=== PATIENT | female | born 1980 | race Hispanic/Latino ===

== ENCOUNTER 2024-04-06 09:08 | Day surgery (SDC) | payer BC ==
[2024-04-04 14:27] VITALS: BMI 36.6
[2024-04-04 14:32] LABS: BHCG - Serum Negative (NEGATIVE); Pregs Control Background? CLEAR/WHITE (CLR/WHITE); Pregs Control Bar Appear? YES (CONTROL BAR)
[2024-04-04 14:33] LABS: Hematocrit 36.6 % (34.9-44.5); Hemoglobin 10.9 g/dL (12.0-15.5); Mean Corpuscular HGB CONC 29.8 g/dL (32.0-36.0); Mean Corpuscular Hemoglobin 21.6 pg (27.0-33.0); Mean Corpuscular Volume 72.6 fL (81.6-98.3); Mean Platelet Volume 11.8 fL (7.4-10.4); Platelet Count 279 10x3/uL (150-450); RBC Distribution Width 22.2 % (11.5-14.5); Red Blood Cell (RBC) Count 5.04 10x6/uL (3.90-5.03); White Blood Cell (WBC) Count 7.5 10x3/uL (3.5-10.5)
[2024-04-06] MEDS ORDERED: Gabapentin 300 MG CAP ONE (10:02)
[2024-04-06] MEDS ORDERED: Famotidine/PF 20 mg/2ml Vial ONE (10:02)
[2024-04-06] MEDS ORDERED: CeleCOXIB 100 MG CAP ONE (10:02)
[2024-04-06] MEDS ORDERED: EPINEPHrine 1 MG/ML VIAL ONE (10:21)
[2024-04-06] MEDS ORDERED: Bupivacaine PF 0.5% 30 ML VIAL ONE (10:21)
[2024-04-06] MEDS ORDERED: SUGAMMADEX SODIUM 200 MG/2 ML VIAL ONE (10:46)
[2024-04-06] MEDS ORDERED: Dexmedetomidine 200 MCG/2 ML VIAL ONE (10:46)
[2024-04-06] MEDS ORDERED: Ondansetron PF 4 MG/2 ML Vial ONE (10:48)
[2024-04-06] MEDS ORDERED: Midazolam HCl 2 mg/2 ml Vial ONE (10:48)
[2024-04-06] MEDS ORDERED: Rocuronium Bromide 10 MG/ML (10ML VIAL) ONE (10:48)
[2024-04-06] MEDS ORDERED: Fentanyl 250 MCG/5 ML VIAL ONE (10:48)
[2024-04-06] MEDS ORDERED: PROPOFOL 20 ML ONE (10:48)
[2024-04-06] MEDS ORDERED: Dexamethasone 20 MG/5 ML VIAL ONE (10:48)
[2024-04-06] MEDS ORDERED: Lidocaine 1% PF 5 ML VIAL ONE (10:48)
[2024-04-06] MEDS ORDERED: CEFAZOLIN 2 GM VIAL ONE (11:13)
[2024-04-06] MEDS ORDERED: Ketorolac Tromethamine 30 MG (1 mL) VIAL ONE (11:55)
[2024-04-06] MEDS ORDERED: ePHEDrine Sulfate 50 MG/10 ML VIAL ONE (12:05)
[2024-04-06] MEDS ORDERED: fentaNYL 50 mcg/mL 1 mL Vial ONE ×2 (14:36→14:44)
[2024-04-06] MEDS ORDERED: HYDROcodone/Acetaminophen 5/325 mg Tablet ONE (15:36)
== END 2024-04-06 16:45 | disposition home or self-care (01) ==
LOC: CSHSDC 09:08
PROVIDERS: ATTEND Student in an Organized Health Care Education/Training Program
PROC: 0UT94ZZ Resection of Uterus, Percutaneous Endoscopic Approach (ICD-10-PCS; principal; 2024-04-06)
PROC: 0UB74ZZ Excision of Bilateral Fallopian Tubes, Percutaneous Endoscopic Approach (ICD-10-PCS; principal; 2024-04-06)
DX: D25.9 Leiomyoma of uterus, unspecified (principal); N72 Inflammatory disease of cervix uteri; N87.0 Mild cervical dysplasia; N88.8 Other specified noninflammatory disorders of cervix uteri; N93.9 Abnormal uterine and vaginal bleeding, unspecified; D64.9 Anemia, unspecified; E66.9 Obesity, unspecified; Z68.38 Body mass index [BMI] 38.0-38.9, adult
CPT/HCPCS: 36415; 84703; 85027; 86850; 86900; 86901; 88307; J0171; J0665; J1100; J1885; J2250; J2405; J2704; J3010; S0028